=== PATIENT | female | born 1975 ===

== ENCOUNTER 2016-05-27 22:29 | Observation (INO) | payer OTHER ==
[2016-05-27] MEDS ORDERED: ASPIRIN 81 MG CHEW PO STA (23:01)
--- NOTE | 2016-05-27 23:42 | ED ---
General Adult HPI - General Chief complaint: Shortness of Breath Stated complaint: AXEL / HTN Time Seen by Provider: 05/27/16 22:43 Source: patient Mode of arrival: ambulatory Limitations: no limitations - History of Present Illness Initial comments: 41-year-old female with history diabetes and hypertension presenting for chest pain and abdominal pain and SOB. Patient states that her symptoms began earlier today after she was at the dentist for 2 fillings. She did have local anesthetic at that time. She states that she is also benign new medication for hypertension over the past month although her blood pressure readings have been labile. States that her sugars been running higher over the past week. In the 280s. States she is taking her insulin both Lantus and sliding scale. She states her sugars are better in the morning and worse at nighttime. She states that today she began having chest pain and and abdominal pain. She has mild nausea associated has not had any vomiting. She denies any fevers or chills. - Related Data Allergies Allergy/AdvReac Type Severity Reaction Status Date / Time No Known Allergies Allergy Verified 05/27/16 23:44 Review of Systems ROS Statement: Those systems with pertinent positive or pertinent negative responses have been documented in the HPI. Constitutional: No fevers. No chills. No change in appetite. No unexpected weight loss. Eyes: No visual changes. No eye pain. No sensitivity to light. HENT: No sinus pressure. No ear pain. No hearing changes. No epistaxis. No sore throat. Respiratory: No cough. Positive SOB. No wheezing. Cardiovascular: Positive chest pain. No palpitations. No lower extremity edema. Abdomen: Positive abdominal pain. Positive nausea. No vomiting. No diarrhea. Genitourinary: No dysuria. No hematuria. No difficulty urinating. No flank pain. Irregular and heavy periods. Musculoskeletal: No injury. No back pain. No myalgias. Skin: No rash. No lesions. No lacerations. Neuro: No gross strength deficits. No LOC. No seizures. No headache. Psych: No confusion. No memory changes. No anxiety/depression. ROS Other: All systems not noted in ROS Statement are negative. Past Medical History Past Medical History: Diabetes Mellitus History of Any Multi-Drug Resistant Organisms: None Reported Past Surgical History: No Surgical Hx Reported Past Psychological History: Anxiety Smoking Status: Never smoker Past Alcohol Use History: None Reported Past Drug Use History: None Reported General Exam - General Exam Comments Initial Comments: General: Awake and Alert. No acute distress. Does not appear acutely ill. Obese. Eyes: DENICE, EOM intact. No nystagmus. No scleral icterus. HENT: Atraumatic, normocephalic. Mucous membranes moist. Trachea midline. Neck: The neck is supple, there is no tenderness or JVD. Cardiovascular: Regular rate and rhythm. No murmur, rub, or gallop is appreciated. Distal pulses intact. Respiratory: Lungs are clear to auscultation bilaterally. No wheezes, rales, rhonchi. No respiratory distress. Gastrointestinal: Soft, Nontender. No rebound or guarding. Non-distended. No masses or organomegaly noted. No CVA tenderness. Musculoskeletal: No tenderness. Normal ROM. No gross deformity. No strength deficits. Neurological: A&Ox3. CN II-XII grossly intact, There are no obvious motor or sensory deficits. Coordination appears grossly intact. Speech is normal. Skin: Skin is warm and dry and no rashes or lesions are noted. Psychiatric: Cooperative, appropriate mood & affect, normal judgment. Limitations: no limitations Course Vital Signs 05/27/16 05/27/16 22:30 23:56 Temperature 98.2 F Pulse Rate 102 H 80 Respiratory 22 18 Rate Blood Pressure 248/109 235/68 O2 Sat by Pulse 99 96 Oximetry EKG Findings - EKG Comments: EKG Findings:: EKG 23:31. Normal sinus rhythm. Rate 81. PA 122. QRS 80. QT/ QTc 390/453. Normal axis. No STEMI. Normal EKG. Medical Decision Making - Medical Decision Making 41-year-old female presenting for chest pain and abdominal pain. Patient states history of diabetes. She is also noted to be significantly hypertensive on initial exam. IV labetalol ordered. Was given ASA. Cardiac workup ordered. Lab work showing anemia which patient states is a new issue. She does states she has had heavier and irregular periods recently. BMP with elevated renal function concerning for AKA, though no prior values to compare to. Glucose mildly elevated. Initial lipase with mild elevation. Otherwise LFTs are stable. Initial troponin Given significant hypertension ongoing chest pain and abdominal pain, plan for admission for further evaluation and treatment for cardiac evaluation and trending of lipase. Patient is agreeable with this plan. I spoke with Dr. Webb, agrees with plan for admission. - Lab Data Result diagrams: 05/27/16 23:40 05/27/16 23:40 Lab Results 05/27/16 05/27/16 05/27/16 Range/Units 23:40 23:40 23:40 WBC 8.6 (3.8-10.6) k/uL RBC 4.02 (3.80-5.40) m/uL Hgb 9.4 L (11.4-16.0) gm/dL Hct 30.5 L (34.0-46.0) % MCV 76.0 L (80.0-100.0) fL MCH 23.3 L (25.0-35.0) pg MCHC 30.7 L (31.0-37.0) g/dL RDW 13.6 (11.5-15.5) % Plt Count 513 H (150-450) k/uL Neutrophils % 62 % Lymphocytes % 29 % Monocytes % 4 % Eosinophils % 2 % Basophils % 1 % Neutrophils # 5.3 (1.3-7.7) k/uL Lymphocytes # 2.5 (1.0-4.8) k/uL Monocytes # 0.3 (0-1.0) k/uL Eosinophils # 0.2 (0-0.7) k/uL Basophils # 0.1 (0-0.2) k/uL Hypochromasia Marked Sodium 142 (137-145) mmol/L Potassium 4.4 (3.5-5.1) mmol/L Chloride 105 (98-107) mmol/L Carbon Dioxide 23 (22-30) mmol/L Anion Gap 14 mmol/L BUN 40 H (7-17) mg/dL Creatinine 1.60 H (0.52-1.04) mg/dL Est GFR (MDRD) Af Amer 43 (>60 ml/min/1.73 sqM) Est GFR (MDRD) Non-Af 35 (>60 ml/min/1.73 sqM) Glucose 202 H (74-99) mg/dL POC Glucose (mg/dL) (75-99) mg/dL POC Glu Sewing Line Baler ID Calcium 9.8 (8.4-10.2) mg/dL Total Bilirubin 0.5 (0.2-1.3) mg/dL AST 30 (14-36) U/L ALT 24 (9-52) U/L Alkaline Phosphatase 87 (38-126) U/L Troponin I (0.000-0.034) ng/mL NT-Pro-B Natriuret Pep 57 pg/mL Total Protein 8.1 (6.3-8.2) g/dL Albumin 4.2 (3.5-5.0) g/dL Lipase 369 H (23-300) U/L 05/27/16 05/27/16 Range/Units 23:40 23:55 WBC (3.8-10.6) k/uL RBC (3.80-5.40) m/uL Hgb (11.4-16.0) gm/dL Hct (34.0-46.0) % MCV (80.0-100.0) fL MCH (25.0-35.0) pg MCHC (31.0-37.0) g/dL RDW (11.5-15.5) % Plt Count (150-450) k/uL Neutrophils % % Lymphocytes % % Monocytes % % Eosinophils % % Basophils % % Neutrophils # (1.3-7.7) k/uL Lymphocytes # (1.0-4.8) k/uL Monocytes # (0-1.0) k/uL Eosinophils # (0-0.7) k/uL Basophils # (0-0.2) k/uL Hypochromasia Sodium (137-145) mmol/L Potassium (3.5-5.1) mmol/L Chloride (98-107) mmol/L Carbon Dioxide (22-30) mmol/L Anion Gap mmol/L BUN (7-17) mg/dL Creatinine (0.52-1.04) mg/dL Est GFR (MDRD) Af Amer (>60 ml/min/1.73 sqM) Est GFR (MDRD) Non-Af (>60 ml/min/1.73 sqM) Glucose (74-99) mg/dL POC Glucose (mg/dL) 212 H (75-99) mg/dL POC Glu Sewing Line Baler ID [place], [place]rence Calcium (8.4-10.2) mg/dL Total Bilirubin (0.2-1.3) mg/dL AST (14-36) U/L ALT (9-52) U/L Alkaline Phosphatase (38-126) U/L Troponin I <0.012 (0.000-0.034) ng/mL NT-Pro-B Natriuret Pep pg/mL Total Protein (6.3-8.2) g/dL Albumin (3.5-5.0) g/dL Lipase (23-300) U/L - EKG Data -: EKG Interpreted by Me EKG shows normal: sinus rhythm Rate: normal - Radiology Data Radiology results: report reviewed, image reviewed Disposition Clinical Impression: Chest pain, Abdominal pain, HTN (hypertension), Diabetes mellitus, Elevated lipase, STEPHEN (acute kidney injury), Anemia, Menorrhagia with irregular cycle Disposition: ADMITTED IP TO THIS HOSP Condition: Stable Referrals: Sarbjit Flores MD [Primary Care Provider] - 1-2 days Time of Disposition: 01:02 Decision to Admit Reason: Admit from EC
[2016-05-27] MEDS ORDERED: cloNIDine HCL 0.2 MG TAB PO STA (23:55)
[2016-05-27] MEDS ORDERED: LABETALOL SYRINGE 5 MG/ML IVP STA (23:55)
--- NOTE | 2016-05-27 23:58 | XR ---
EXAMINATION TYPE: XR chest 2V DATE OF EXAM: 05/27/2016 11:51 PM COMPARISON: NONE HISTORY: Chest pain TECHNIQUE: Frontal and lateral views of the chest are obtained. FINDINGS: There is no heart failure nor confluent pneumonic infiltrate. Heart and mediastinum are no rmal. There are no hilar masses. There are chest leads. Bony thorax is intact. IMPRESSION: Normal chest
[2016-05-28] LABS: Basophils # (A) 0.1 k/uL (0-0.2); Basophils % (A) 1 %; CH 23.1; CHCM 30.5; Eosinophils # (A) 0.2 k/uL (0-0.7); Eosinophils % (A) 2 %; HCT 30.5 % (34.0-46.0); HDW 3.13; HGB 9.4 gm/dL (11.4-16.0); Hypochromasia Marked; Luc # (Auto) 0.21; Luc % (Auto) 2; Lymphocytes # (A) 2.5 k/uL (1.0-4.8); Lymphocytes % (A) 29 %; MCH 23.3 pg (25.0-35.0); MCHC 30.7 g/dL (31.0-37.0); Mean Platelet Volume 6.3; Monocytes # (A) 0.3 k/uL (0-1.0); Monocytes % (A) 4 %; Neutrophils # (A) 5.3 k/uL (1.3-7.7); Neutrophils % (A) 62 %; RBC 4.02 m/uL (3.80-5.40); RDW 13.6 % (11.5-15.5); WBC 8.6 k/uL (3.8-10.6); WBC (Perox) 9.08
[2016-05-28] LABS: Glucose,Whole Blood 212 mg/dL (75-99)
[2016-05-28 00:17] LABS: Calcium 9.8 mg/dL (8.4-10.2); Potassium 4.4 mmol/L (3.5-5.1); Total Bilirubin 0.5 mg/dL (0.2-1.3); Total Protein 8.1 g/dL (6.3-8.2)
[2016-05-28] MEDS ORDERED: ACETAMINOPHEN TAB 325 MG TAB PO PRN (00:48)
[2016-05-28] MEDS ORDERED: NALOXONE 0.4 MG/ML 1 ML VIAL IV PRN (00:48)
[2016-05-28] MEDS ORDERED: ONDANSETRON 4 MG/2 ML VIAL IVP PRN (00:48)
[2016-05-28] MEDS ORDERED: NITROGLYCERIN SL TABS 0.4 MG TAB SUBLINGUAL PRN (00:48)
[2016-05-28] MEDS ORDERED: HYDROcodone/APAP 5-325MG 1 EACH TAB PO PRN (00:48)
[2016-05-28] MEDS ORDERED: MORPHINE SULFATE 4 MG/ML SYRINGE IVP PRN (00:59)
[2016-05-28] MEDS ORDERED: LABETALOL SYRINGE 5 MG/ML IVP PRN (01:00)
[2016-05-28 02:13] LABS: Glucose,Whole Blood 205 mg/dL (75-99)
[2016-05-28 02:30] VITALS: BMI 29.6
[2016-05-28 06:09] LABS: Glucose,Whole Blood 182 mg/dL (75-99)
[2016-05-28] MEDS: INSULIN LISPRO (humaLOG) 300 UNIT/3 ML VIAL SQ SCH ×4 (06:30→21:50)
[2016-05-28 06:35] LABS: Creatine Kinase 49 U/L (30-135)
[2016-05-28 06:46] LABS: Creatine Kinase MB <0.2 ng/mL (0.0-2.4); Troponin I <0.012 ng/mL (0.000-0.034)
[2016-05-28] MEDS: DOCUSATE 100 MG CAP PO SCH (07:48)
[2016-05-28] MEDS: TRIAMTERENE-HCTZ 37.5-25MG 1 EACH TAB PO SCH (07:48)
[2016-05-28] MEDS: FAMOTIDINE 20 MG TAB PO SCH ×2 (07:48→20:23)
[2016-05-28] MEDS: HEPARIN SODIUM,PORCINE 5,000 UNIT/ML 1 ML VIAL SQ SCH ×3 (07:49→23:15)
[2016-05-28 11:41] LABS: Glucose,Whole Blood 177 mg/dL (75-99)
[2016-05-28 12:40] LABS: Hemoglobin A1C 6.8 % (4.2-6.1)
[2016-05-28] MEDS: amLODIPine 5 MG TAB PO SCH (12:43)
[2016-05-28] MEDS: LISINOPRIL 10 MG TAB PO SCH (12:43)
[2016-05-28 13:02] LABS: Creatine Kinase 49 U/L (30-135)
[2016-05-28 13:15] LABS: Creatine Kinase MB 0.3 ng/mL (0.0-2.4); Troponin I <0.012 ng/mL (0.000-0.034)
--- NOTE | 2016-05-28 13:24 | CONS ---
Mrs. Merchant is a 41-year-old female who is seen for cardiac evaluation. The patient's electronic medical records and emergency room records reviewed. This patient has a history of hypertension and diabetes. She was at her dentist. She had 2 fillings done. After the local anesthetic was given, the patient did not feel good. She started having some chest discomfort. Her blood pressure was high. Subsequently, the procedure was completed and she continued to have some chest discomfort. The pain is across the chest, not associated with any nausea, vomiting or sweating. Patient had similar symptoms 2 or 3 weeks ago when she had first anesthetic done. Patient has a history of diabetes as well as a history of hypertension. Patient is physically active and she denies any history of exertional chest pain. There is no prior history of myocardial infarction. Past medical history includes history of anxiety. SMOKING STATUS: The patient was never a smoker. REVIEW OF SYSTEMS: Patient has a history of chronic constipation. Physical examination at present reveals a 41-year-old obesely-built female who does not appear to be in any acute distress. Patient's blood pressure is now 177/79 mmHg. Head/HEENT is negative. Neck is supple. There is no increase in jugular venous pressure. Both the carotid pulses are felt. There is no bruit. Chest is symmetrical. HEART: The PMI is not felt. First and second heart sounds are normal. Lungs are clinically clear to auscultation and percussion. Abdomen is soft. Liver and spleen are not enlarged. Bowel sounds are heard. EXTREMITIES: Peripheral pulsations are 2+. EKG shows normal sinus rhythm without any acute ischemic changes. Patient's troponins are normal. FINAL IMPRESSION: This patient is admitted with chest pain and high blood pressure. The patient has a history of diabetes. RECOMMENDATIONS: We will start the patient on amlodipine and lisinopril and if the patient's blood pressure remains controlled, we will evaluate the patient with a stress echocardiographic study on Monday. Echo and Doppler study would be done.
[2016-05-28 16:40] LABS: Glucose,Whole Blood 221 mg/dL (75-99)
[2016-05-28] MEDS ORDERED: ALPRAZolam 0.25 MG TAB PO PRN (17:29)
[2016-05-28] MEDS ORDERED: HYDROmorphone 1 MG/ML 1 ML SYRINGE IVP PRN (17:29)
[2016-05-28] MEDS ORDERED: ATROPINE SULFATE RIGHT EYE SCH (17:30)
[2016-05-28] MEDS ORDERED: NACL 0.9% RIGHT EYE SCH (17:30)
[2016-05-28] MEDS ORDERED: LACTULOSE 20 GM/30 ML CUP PO SCH (18:00)
[2016-05-28 18:56] LABS: Amorphous Sediment,Urine Rare /hpf; Appearance,Urine Cloudy (Clear); Bilirubin,Urine Negative (Negative); Glucose,Urine (UA) 4+ (Negative); Ketones,Urine Negative (Negative); Leukocyte Esterase,Urine Negative (Negative); Mucus,Urine Rare /hpf; Nitrite,Urine Negative (Negative); PH, Urine 6.5 (5.0-8.0); Particle Count 4015; Protein,Urine 1+ (Negative); RBC,Urine 1 /hpf (0-5); Specific Gravity,Urine 1.011 (1.001-1.035); Squamous Epithelial Cell,Urine 9 /hpf (0-4); UA Billing (MACRO vs. MICRO) MICRO; Urobilinogen,Urine <2.0 mg/dL (<2.0); WBC,Urine 5 /hpf (0-5)
--- NOTE | 2016-05-28 19:20 | HP ---
DATE OF ADMISSION: 05/28/2016 CHIEF COMPLAINT: Shortness of breath and chest pain. HISTORY OF PRESENT ILLNESS: This 41-year-old woman with a past history of multiple medical problems, including diabetes mellitus type 1, history of hypertension, hyperlipidemia, history of miscarriages, colonoscopy, history of difficulty in vision with diabetic retinopathy, history of anxiety, being followed by primary physician in, was visiting family. The patient had chest pains in the anterior part of chest and some abdominal pain, also. The patient had shortness of the patient. The patient also was at the dentist with 2 fillings. The patient also had local anesthesia at that time. Subsequently because of multiple complaints, patient came to [facility], admitted for further evaluation and treatment. Blood sugars were elevated up to 212, hemoglobin A1c 6.8. Lipase was 369 and 379. Otherwise, hemoglobin was 9.4, platelets are 515. The patient also had multiple other evaluations, including chest x-ray which was normal and EKG showed normal sinus rhythm. Patient came for further evaluation and treatment. There is no history of any fever, rigors or chills. No history of headache, loss of consciousness or seizures. PAST MEDICAL HISTORY: History of diabetes mellitus type 1, history of hypertension, hyperlipidemia, history of pneumonia, history of miscarriages, history of anxiety. Medications prior to admission include: 1. Maxzide 1 tablet p.o. daily. 2. Xalatan 0.05% 1 drop left eye q.h.s. 3. Lantus 65 subcu q.h.s. 4. Vitamin D2 50,000 subcu p.o. Monday. 5. Dorzolamide 1 drop both eyes b.i.d. 6. Colace 100 mg p.o. q.h.s. 7. Alphagan 0.2% 1 drop b.i.d. 8. Aspirin 81 mg p.o. daily. 9. Humalog a.c. t.i.d. 10. Xanax 1 mg p.o. daily. 11. Atropine 1 drop right eye q.48 hours. ALLERGIES: None. FAMILY HISTORY: History of diabetes, hypertension, hyperlipidemia as well as stent placement in the family. SOCIAL HISTORY: No history of smoking. No history of alcohol intake. REVIEW OF SYSTEMS: ENT: Diminished vision. No diminished hearing. Diabetic retinopathy. CARDIOVASCULAR: As mentioned earlier. RESPIRATORY: As mentioned earlier. GI: As mentioned earlier. : No dysuria. NERVOUS: No numbness or weakness. ALLERGY/IMMUNOLOGY: No asthma or hay fever. MUSCULOSKELETAL: As mentioned earlier. HEMATOLOGY/ONCOLOGY: No history of anemia. ENDOCRINE: As mentioned earlier. CONSTITUTIONAL: As mentioned earlier. DERMATOLOGY: Negative. RHEUMATOLOGY: Negative. PSYCHIATRY: As mentioned earlier. PHYSICAL EXAMINATION: Alert and oriented x3. Pulse 84, blood pressure 170/79, no orthostatic changes. Respirations 16, temperature is 97.8, pulse ox 100% on room air. HEENT: Conjunctivae normal. Oral mucosa moist. NECK: No jugular venous distention. No carotid bruits. No lymph node enlargement. CARDIOVASCULAR: S1 and S2, muffled. No S3. No S4. RESPIRATORY: Breath sounds diminished at the bases. No rhonchi, no crackles. ABDOMEN: Soft, nontender. No mass palpable. LEGS: No edema, no swelling. NERVOUS SYSTEM: Higher function as mentioned. Moves all 4 limbs. No motor or sensory deficits. LYMPHATIC: No lymph nodes in neck, axillae or groin. SKIN: No ulcers, rash or bleeding. LABS: WBC 8.3, hemoglobin is 10.4 and platelets are 513. Creatinine is 1.6 and glucose 212. Hemoglobin A1c of 6.8. Lipase of 369. ASSESSMENT: 1. Chest pain and abdominal pain for evaluation, rule out coronary artery disease. 2. Rule out acute pancreatitis. 3. Diabetes mellitus type 1. 4. Increased creatinine with mild acute renal failure. 5. Diabetic retinopathy. 6. Anemia, microcytic. 7. Increased platelets. 8. Hypertension. 9. Hyperlipidemia. 10. History of pneumonia. 11. History of miscarriages. 12. History of anxiety, not otherwise specified. 13. FULL CODE. RECOMMENDATIONS AND DISCUSSION: In this 41-year-old woman who presented with multiple complex medical issues, we will monitor the patient closely, continue with the current medications, continue with symptomatic treatment. Resume the home medications. Rule out myocardial infarction. Cardiology has been consulted. Otherwise, I will repeat amylase and lipase and if the amylase is also elevated, I would recommend a CT scan of the abdomen, also. Otherwise, continue to monitor. Prognosis guarded. Further recommendations to follow. See orders for further details. Monitor blood sugars closely and further workup Cardiology and control the blood pressure. MTDD
[2016-05-28] MEDS ORDERED: ATROPINE OPHTH SOLN 1% 5ML BTL RIGHT EYE SCH (20:00)
[2016-05-28] MEDS: LACTULOSE 20 GM/30 ML CUP PO SCH ×2 (20:14→20:21)
[2016-05-28] MEDS: BRIMONIDINE TARTRATE 0.2% DROPS 5 ML BTL BOTH EYES SCH (20:19)
[2016-05-28] MEDS: DORZOLAMIDE HCL 2% DROPS 10 ML BTL BOTH EYES SCH (20:20)
[2016-05-28] MEDS: LATANOPROST 0.005% OPHTH DROPS 2.5 ML BTL LEFT EYE SCH (20:20)
[2016-05-28 20:56] LABS: Glucose,Whole Blood 285 mg/dL (75-99)
[2016-05-28] MEDS ORDERED: TEMAZEPAM 15 MG CAP PO PRN (21:00)
[2016-05-28] MEDS: INSULIN GLARGINE 100 UNIT/ML 10 ML VIAL SQ SCH (21:50)
[2016-05-29 06:23] LABS: Glucose,Whole Blood 151 mg/dL (75-99)
[2016-05-29 06:28] LABS: Basophils # (A) 0.1 k/uL (0-0.2); Basophils % (A) 1 %; CH 23.4; CHCM 30.9; Eosinophils # (A) 0.1 k/uL (0-0.7); Eosinophils % (A) 2 %; HCT 30.2 % (34.0-46.0); HDW 3.07; HGB 9.3 gm/dL (11.4-16.0); Hypochromasia Moderate; Luc # (Auto) 0.24; Luc % (Auto) 4; Lymphocytes # (A) 2.4 k/uL (1.0-4.8); Lymphocytes % (A) 37 %; MCH 23.5 pg (25.0-35.0); MCHC 30.9 g/dL (31.0-37.0); Mean Platelet Volume 7.1; Monocytes # (A) 0.4 k/uL (0-1.0); Monocytes % (A) 6 %; Neutrophils # (A) 3.2 k/uL (1.3-7.7); Neutrophils % (A) 50 %; RBC 3.97 m/uL (3.80-5.40); WBC 6.4 k/uL (3.8-10.6); WBC (Perox) 7.28
[2016-05-29] MEDS: INSULIN LISPRO (humaLOG) 300 UNIT/3 ML VIAL SQ SCH ×4 (06:47→21:37)
[2016-05-29] MEDS: PANTOPRAZOLE 40 MG TABLET PO SCH (06:48)
[2016-05-29 06:52] LABS: Calcium 9.8 mg/dL (8.4-10.2); Potassium 4.4 mmol/L (3.5-5.1)
[2016-05-29] MEDS: HEPARIN SODIUM,PORCINE 5,000 UNIT/ML 1 ML VIAL SQ SCH ×3 (08:02→23:19)
[2016-05-29] MEDS: FAMOTIDINE 20 MG TAB PO SCH ×2 (08:03→21:36)
[2016-05-29] MEDS: amLODIPine 5 MG TAB PO SCH (08:03)
[2016-05-29] MEDS: TRIAMTERENE-HCTZ 37.5-25MG 1 EACH TAB PO SCH (08:03)
[2016-05-29] MEDS: ASPIRIN 325 MG TAB PO SCH (08:03)
[2016-05-29] MEDS: BRIMONIDINE TARTRATE 0.2% DROPS 5 ML BTL BOTH EYES SCH ×2 (08:04→21:37)
[2016-05-29] MEDS: DOCUSATE 100 MG CAP PO SCH (08:04)
[2016-05-29] MEDS: DORZOLAMIDE HCL 2% DROPS 10 ML BTL BOTH EYES SCH ×2 (08:04→21:36)
[2016-05-29] MEDS: LACTULOSE 20 GM/30 ML CUP PO SCH ×4 (08:04→21:36)
[2016-05-29] MEDS: LISINOPRIL 10 MG TAB PO SCH (08:04)
[2016-05-29 11:49] LABS: Glucose,Whole Blood 225 mg/dL (75-99)
--- NOTE | 2016-05-29 15:05 | PN ---
This patient was admitted with chest pain and uncontrolled blood pressure. Patient is feeling better. He is not having any more chest discomfort. Patient's blood pressure remains fairly well controlled. Last blood pressure is 115/60 mmHg. HEART: S1 and S2 normal. Lungs are clinically clear to auscultation and percussion. Patient will undergo a stress test tomorrow.
[2016-05-29 16:22] LABS: Glucose,Whole Blood 201 mg/dL (75-99)
[2016-05-29 16:48] VITALS: RESP 18
[2016-05-29 21:05] LABS: Glucose,Whole Blood 201 mg/dL (75-99)
[2016-05-29] MEDS: INSULIN GLARGINE 100 UNIT/ML 10 ML VIAL SQ SCH (21:37)
[2016-05-29] MEDS: LATANOPROST 0.005% OPHTH DROPS 2.5 ML BTL LEFT EYE SCH (21:38)
--- NOTE | 2016-05-29 23:02 | PN ---
DATE OF SERVICE: 05/29/2016 This 41-year-old woman who was admitted with shortness of breath, chest pain is being closely monitored. Myocardial infarction ruled out. Cardiology is recommending cardiac stress test tomorrow. No chest pain. No palpitations. No fever. On exam, alert and oriented x3. Pulse is 76, blood pressure 115/60, respiratory rate 16, temperature 97.2, pulse ox 100% on room air. HEENT: Conjunctivae normal . NECK: No jugular venous distention. CARDIOVASCULAR: S1, S2 muffled. RESPIRATORY: Breath sounds diminished at the bases. No rhonchi. No crackles. ABDOMEN: Soft, nontender. LEGS: No edema. No Swelling. Nervous system: No focal deficit. LABS: Hemoglobin 9.3. Otherwise, glucose is 130 and LDL is 107 and HDL is 35. ASSESSMENT: 1. Chest pain, abdominal pain for evaluation, rule out coronary artery disease. 2. Acute pancreatitis unlikely. 3. Diabetes mellitus type 1. 4. Increased creatinine with mild acute renal failure. 5. Diabetic retinopathy. 6. Anemia, microcytic. 7. Increased platelets. 8. Hypertension, essential. 9. History of hyperlipidemia. 10. History of pneumonia. 11. History of miscarriages. 12. Anxiety, not otherwise specified. 13. Increased triglycerides. 14. Hyperlipidemia. 15. Anemia, microcytic for evaluation. 16. Increased platelets. 17. FULL CODE. RECOMMENDATIONS AND DISCUSSION: Recommend to continue current medications, continue with monitoring, symptomatic treatment. Otherwise, resume the previous medications. Closely monitor. Closely follow with cardiology. Possible stress test. Monitor blood sugars closely. Guarded prognosis because of multiple complex medical issues. Further recommendations to follow.
[2016-05-30 06:28] LABS: Basophils % (A) 1 %; CHCM 30.3; Eosinophils # (A) 0.2 k/uL (0-0.7); Eosinophils % (A) 3 %; HCT 29.1 % (34.0-46.0); HDW 3.06; Hypochromasia Marked; Luc # (Auto) 0.18; Luc % (Auto) 2; Lymphocytes # (A) 2.4 k/uL (1.0-4.8); Lymphocytes % (A) 32 %; MCH 23.5 pg (25.0-35.0); MCHC 30.9 g/dL (31.0-37.0); MCV 76.3 fL (80.0-100.0); Mean Platelet Volume 6.3; Monocytes # (A) 0.5 k/uL (0-1.0); Monocytes % (A) 6 %; Neutrophils # (A) 4.2 k/uL (1.3-7.7); Neutrophils % (A) 56 %; RBC 3.82 m/uL (3.80-5.40); RDW 13.7 % (11.5-15.5); WBC 7.5 k/uL (3.8-10.6); WBC (Perox) 8.24
[2016-05-30 06:39] LABS: Calcium 9.8 mg/dL (8.4-10.2); Potassium 4.2 mmol/L (3.5-5.1)
[2016-05-30 06:53] LABS: Glucose,Whole Blood 109 mg/dL (75-99)
[2016-05-30] MEDS: INSULIN LISPRO (humaLOG) 300 UNIT/3 ML VIAL SQ SCH ×2 (06:57→12:50)
[2016-05-30] MEDS ORDERED: ERGOCALCIFEROL 50,000 UNIT CAP PO SCH (09:00)
[2016-05-30 11:15] LABS: Glucose,Whole Blood 78 mg/dL (75-99)
--- NOTE | 2016-05-30 11:33 | ECHOF ---
Referral Reason:chest pain MEASUREMENTS -------- HEIGHT: 165.1 cm WEIGHT: 80.3 kg BP: 191/86 RVIDd: 2.8 cm (< 3.3) IVSd: 1.3 cm (0.6 - 1.1) LVIDd: 4.3 cm (3.9 - 5.3) LVPWd: 1.3 cm (0.6 - 1.1) IVSs: 1.6 cm LVIDs: 3.0 cm LVPWs: 1.7 cm LA Diam: 3.7 cm (2.7 - 3.8) LAESV Index (A-L): 19.39 ml/m Ao Diam: 2.9 cm (2.0 - 3.7) AV Cusp: 2.2 cm (1.5 - 2.6) MV EXCURSION: 20.174 mm (> 18.000) MV EF SLOPE: 84 mm/s (70 - 150) EPSS: 0.8 cm MV E [place]: 0.73 m/s MV DecT: 252 ms MV A [place]: 0.71 m/s MV E/A Ratio: 1.04 FINDINGS -------- Sinus rhythm. This was a technically good study. The left ventricular size is normal. There is mild concentric left ventricular hypertrophy. Overall left ventricular systolic function is normal with, an EF between 55 - 60 %. The right ventricle is normal in size and function. Normal LA size by volume 22+/-6 ml/m2. The right atrium is normal in size. The aortic valve is trileaflet and appears structurally normal. The mitral valve is normal. There is trace mitral regurgitation. The tricuspid valve appears structurally normal. No regurgitation noted There is no pulmonic regurgitation present. The aortic root size is normal. There is no pericardial effusion. CONCLUSIONS -------- 1. Sinus rhythm. 2. This was a technically good study. 3. There is mild concentric left ventricular hypertrophy. 4. Normal LA size by volume 22+/-6 ml/m2. 5. The aortic valve is trileaflet and appears structurally normal. 6. The tricuspid valve appears structurally normal. 7. There is no pulmonic regurgitation present. 8. The aortic root size is normal. 9. There is no pericardial effusion. COLLECTOR OF INTERNAL REVENUE: Faina Yee RDCS
[2016-05-30] MEDS: BRIMONIDINE TARTRATE 0.2% DROPS 5 ML BTL BOTH EYES SCH (12:46)
[2016-05-30] MEDS: ASPIRIN 325 MG TAB PO SCH (12:46)
[2016-05-30] MEDS: PANTOPRAZOLE 40 MG TABLET PO SCH (12:47)
[2016-05-30] MEDS: HEPARIN SODIUM,PORCINE 5,000 UNIT/ML 1 ML VIAL SQ SCH (12:47)
[2016-05-30] MEDS: amLODIPine 5 MG TAB PO SCH (12:47)
[2016-05-30] MEDS: DOCUSATE 100 MG CAP PO SCH (12:47)
[2016-05-30] MEDS: FAMOTIDINE 20 MG TAB PO SCH (12:48)
[2016-05-30] MEDS: TRIAMTERENE-HCTZ 37.5-25MG 1 EACH TAB PO SCH (12:48)
[2016-05-30] MEDS: DORZOLAMIDE HCL 2% DROPS 10 ML BTL BOTH EYES SCH (12:48)
[2016-05-30] MEDS: LISINOPRIL 10 MG TAB PO SCH (12:49)
[2016-05-30] MEDS: LACTULOSE 20 GM/30 ML CUP PO SCH (13:04)
--- NOTE | 2016-05-30 13:22 | P.PN ---
Subjective Principal diagnosis: Chest pain This is a 41-year-old female who presented to the hospital with symptoms of chest pain. Patient's blood pressure was also significantly elevated on admission. She has a history of diabetes as well as hypertension. She was seen in consultation yesterday by Dr. VC Hall. Recommended to undergo echocardiogram with Doppler today as well as stress test. Echocardiogram with Doppler study revealed an ejection fraction of 55-60%. Patient was seen and examined today, denies any chest pain or difficulty in breathing. Blood pressure this morning 110/60 with a heart rate in the 70s. Objective - Vital Signs Vital signs: Vital Signs Temp 97.8 F 05/30/16 07:40 Pulse 95 05/30/16 07:40 Resp 18 05/30/16 07:40 BP 159/82 05/30/16 07:40 Pulse Ox 100 05/30/16 07:40 Intake & Output 05/29/16 05/30/16 05/30/16 18:59 06:59 18:59 Intake Total 822 10 10 Output Total 400 350 Balance 422 -340 10 Weight 79.2 kg Intake: IV 10 10 0.9 10 10 Oral 822 Output: Urine 400 350 Other: # Voids 2 1 1 - Exam PHYSICAL EXAMINATION: HEENT: Head is atraumatic, normocephalic. Pupils equal, round. Neck is supple. There is no elevated jugular venous pressure. HEART EXAMINATION: Heart S1, S2 normal. No murmur or gallop heard. CHEST EXAMINATION: Lungs are clear to auscultation and precussion. No chest wall tenderness is noted on palpation or with deep breathing. ABDOMEN: Soft, nontender. Bowel sounds are heard. No organomegaly noted. EXTREMITIES: 2+ peripheral pulses with no evidence of peripheral edema and no calf tenderness noted. NEUROLOGIC patient is awake, alert and oriented -3. . - Labs CBC & Chem 7: 05/30/16 05:59 05/30/16 05:59 Labs: Abnormal Lab Results - Last 24 Hours (Table) 05/29/16 05/29/16 05/30/16 Range/Units 16:20 20:56 05:59 Hgb 9.0 L (11.4-16.0) gm/dL Hct 29.1 L (34.0-46.0) % MCV 76.3 L (80.0-100.0) fL MCH 23.5 L (25.0-35.0) pg MCHC 30.9 L (31.0-37.0) g/dL Plt Count 494 H (150-450) k/uL BUN (7-17) mg/dL Creatinine (0.52-1.04) mg/dL Glucose (74-99) mg/dL POC Glucose (mg/dL) 201 H 201 H (75-99) mg/dL 05/30/16 05/30/16 Range/Units 05:59 06:43 Hgb (11.4-16.0) gm/dL Hct (34.0-46.0) % MCV (80.0-100.0) fL MCH (25.0-35.0) pg MCHC (31.0-37.0) g/dL Plt Count (150-450) k/uL BUN 36 H (7-17) mg/dL Creatinine 1.60 H (0.52-1.04) mg/dL Glucose 113 H (74-99) mg/dL POC Glucose (mg/dL) 109 H (75-99) mg/dL Assessment and Plan (1) Chest pain Status: Acute (2) Diabetes mellitus Status: Acute (3) HTN (hypertension) Status: Acute Plan: Patient scheduled today to undergo a stress echocardiographic study, if negative the patient should be able to be discharged home from cardiology's perspective, if the stress test is positive further recommendations then will be made. DNP note has been reviewed, I agree with a documented findings and plan of care. Patient was seen and examined.
[2016-05-30 13:40] VITALS: BP 146/75; PULSE 96; TEMP 97.1
--- NOTE | 2016-05-30 14:17 | ECHOS ---
DATE OF SERVICE: 05/30/2016 AGE: 41Y SEX: F HT: 65" WT: 175 lbs. Protocol Kiet: X Others: Stress Echo Stage: 3 Dur. of Exercise: 8:00 *Heart Rate Blood Pressure *Rest: 109 Rest: 143/75 * *Max. Achieved: 151 Maximum BP: 214/67 85% PMHR: 151 100% PMHR: 178 *METS: 8.1 INDICATIONS: Chest pain. MEDICATIONS: Lantus, Humalog, aspirin. Baseline rhythm is sinus mechanism, rate of 109, normal axis and intervals. Normal electrocardiogram. Baseline blood pressure 143/75 mmHg. Patient exercised on Kiet protocol for 8 minutes reaching peak rate 151 beats per minute, which is equal to 85% maximum predicted heart rate; peak blood pressure 214/67 mmHg. Test was terminated due to to fatigue. There was no chest pain. Electrocardiograph monitoring revealed no evidence of diagnostic ischemic ST-deviation. FINDINGS: Baseline echocardiogram revealed normal wall motion. At peak exercise there was normal wall motion augmentation with no hypokinesis or dyskinesis. CONCLUSION: 1. Average exercise tolerance with normal electrocardiograph response to exercise. 2. Normal stress echocardiogram with no evidence of stress-induced ischemia.
--- NOTE | 2016-05-31 11:37 | DS ---
DATE OF ADMISSION: 05/28/2016 DATE OF DISCHARGE: 05/30/2016 FINAL DIAGNOSES: 1. Chest pain, abdominal pain myocardial infarction ruled out, coronary artery disease ruled out, negative stress test. 2. Diabetes mellitus type 1. 3. Increased creatinine with mild acute renal failure present on admission, possibly secondary to dehydration. 4. Diabetic retinopathy. 5. Anemia, microcytic. 6. Increased platelets. 7. Hypertension, essential. 8. History of hyperlipidemia. 9. History of pneumonia. 10. History of miscarriages. 11. History of anxiety not otherwise specified. 12. Increased triglycerides. 13. Hyperlipidemia. 14. Anemia, microcytic for evaluation, possibly anemia of chronic disease or nutritional. 15. Increased platelets. 16. FULL CODE. DISCHARGE DISPOSITION: The patient will be discharged in stable condition with guarded prognosis. HISTORY OF PRESENT ILLNESS: This 41 -year-old woman with a past medical history of multiple medical problems admitted with chest pain and abdominal pain. The patient had multiple evaluations including stress echo, which was negative and cardiology saw the patient and recommended outpatient follow-up. Recommend the patient to follow up closely with primary physician in the outpatient setting. Currently on exam, vital signs are stable. CARDIOVASCULAR SYSTEM: S1, S2 muffled. Abdomen soft. Central nervous system: No focal deficits. Hemoglobin 9, creatinine 1.60. DISCHARGE ADVICE AND MEDICATIONS: 1. Diet is cardiac. 2. Activity limited until follow-up. 3. Follow-up with Dr. Flores in 2 to 3 days with CBC, BMP. 4. Medications to be addressed in the outpatient setting. But Currently: 5. Aspirin 81 mg daily. 6. Ectropion eye drops one drop right eye. 7. Alphagan 0.1 drop both eyes b.i.d. 8. Colace 100 mg q.h.s. 9. Dorzolamide one drop both eyes. 10. Vitamin D2 50,000 daily. 11. Humalog scale as before. 12. Lantus 65 units subcutaneously at bedtime. 13. Xalatan eye drops 0.05% 1 drop left eye. 14. Zestril 10 mg p.o. daily. 15. Zantac 150 mg daily. 16. Triamterene hydrochlorothiazide 37.5/25 mg p.o. daily. 17. Norvasc 5 mg p.o. daily. 18. Follow up with cardiology as recommended. Once again, the patient will be discharged in a stable condition with guarded prognosis.
== END 2016-05-30 14:56 | disposition home or self-care (01) ==
LOC: EC 22:29 → 3OBS 05-28 00:48 → 6SEL 05-28 01:34
PROVIDERS: ADMIT Internal Medicine; ATTEND Internal Medicine
DX: R07.89 Other chest pain (principal); E10.319 Type 1 diabetes mellitus with unspecified diabetic retinopathy without macular edema; D50.9 Iron deficiency anemia, unspecified; E78.2 Mixed hyperlipidemia; F41.9 Anxiety disorder, unspecified; I10 Essential (primary) hypertension; N17.9 Acute kidney failure, unspecified; Z79.4 Long term (current) use of insulin; Z79.82 Long term (current) use of aspirin; Z82.49 Family history of ischemic heart disease and other diseases of the circulatory system; R10.9 Unspecified abdominal pain; R06.02 Shortness of breath; Z79.899 Other long term (current) drug therapy; N92.6 Irregular menstruation, unspecified; K59.09 Other constipation
CPT/HCPCS: 96374 ×2; 99285 ×2; 36415; 93005; 93017; 93306; 93350; 83880; 80061; 80053; 80048 ×2; 82150 ×3; 83036; 82550; 82553; 83690 ×4; 84484 ×2; 85025 ×3; 81001; 80306; 71020; G0378 ×4; J1644 ×3; 96372

== ENCOUNTER → 2018-09-10 | Outpatient (CLI) | payer OTHER ==
--- NOTE | 2018-09-10 16:09 | US ---
EXAMINATION TYPE: US abdomen complete DATE OF EXAM: 09/10/2018 COMPARISON: NONE CLINICAL HISTORY: 43-year-old female I10 Hypertension, K59.09 Constipation, R94.4. TECHNIQUE: Multiple sonographic images of the abdomen are obtained. FINDINGS: EXAM MEASUREMENTS: Liver Length: 15.1 cm Gallbladder Wall: 0.4 cm CBD: 0.3 cm Spleen: 10.8 cm Right Kidney: 10.6 x 4.9 x 4.4 cm Left Kidney: 9.9 x 5.1 x 4.4 cm Car Head Liner Installer notes: Severe overlying midline bowel gas, large body habitus technically difficult and l imited. Pancreas: Obscured by bowel gas Liver: Increased attenuation Gallbladder: slightly thickened wall, posterior wall appears thicker Evidence for sonographic Alvarado's sign: CBD: wnl Spleen: wnl Right Kidney: wnl Left Kidney: Tiny 1 cm parapelvic cyst. No hydronephrosis. Upper IVC: wnl Abd Aorta: proximal and bifurcation obscured by bowel gas IMPRESSION: Nonspecific mild gallbladder wall thickening. This can be seen in the setting of partial gallbladder collapse, fluid overload states, or adjacent inflammation (such as hepatitis or pancreatitis). No abn ormal distention, surrounding fluid, or shadowing calculus seen to suggest acute cholecystitis. 3 mon th follow-up gallbladder ultrasound recommended to reassess. If concern for chronic cholecystitis, HI DA scan can be considered.
--- NOTE | 2018-09-10 16:30 | US ---
EXAMINATION TYPE: US pelvic complete DATE OF EXAM: 09/10/2018 COMPARISON: NONE CLINICAL HISTORY: 43-year-old female I10 Hypertension, K59.09 Constipation, Bloating TECHNIQUE: Transabdominal sonographic images of the pelvis were acquired. Date of LMP: 08/12/18 FINDINGS: EXAM MEASUREMENTS: Uterus: 7.9 x 3.0 x 5.2 cm Endometrial Stripe: 0.8 cm Right Ovary: 2.9 x 1.9 x 2.1 cm Left Ovary: 3.1 x 2.7 x 2.4 cm 1. Uterus: Anteverted, wnl 2. Endometrium: wnl 3. Right Ovary: wnl 4. Left Ovary: wnl 5. Bilateral Adnexa: wnl 6. Posterior cul-de-sac: wnl IMPRESSION: Unremarkable transabdominal sonographic examination of the pelvis.
== END | disposition home or self-care (01) ==
LOC: RADUSWWP 12:14
PROVIDERS: ATTEND Family Medicine
DX: K82.8 Other specified diseases of gallbladder (principal); I10 Essential (primary) hypertension; D50.9 Iron deficiency anemia, unspecified; R94.4 Abnormal results of kidney function studies; K59.09 Other constipation
CPT/HCPCS: 76700; 76856

== ENCOUNTER 2019-10-12 07:33 | Emergency (ER) | payer OTHER ==
[2019-10-12 07:40] VITALS: RESP 16; TEMP 98.2
[2019-10-12 07:52] LABS: Glucose,Whole Blood 342 mg/dL (75-99)
[2019-10-12] MEDS ORDERED: SODIUM CHLORIDE 0.9% 2,000 ML IV STA (07:53)
--- NOTE | 2019-10-12 08:07 | ED ---
General Adult HPI - General Chief complaint: Recheck/Abnormal Lab/Rx Stated complaint: diabetic issue Time Seen by Provider: 10/12/19 07:46 Source: patient, family, RN notes reviewed Mode of arrival: ambulatory Limitations: no limitations - History of Present Illness Initial comments: This a 44-year-old female presents emergency Department with chief complaint of hyperglycemia. Patient states that she's been having difficulty controlling her blood sugar last several weeks. She states that she's been there 3 to 400s. She is concerned possible infection. She denies any significant cough, fever, chills, chest pain, shortness breath, headache or dizziness, dysuria no hematuria denies any diarrhea she does complain of constipation which is been ongoing seen GI. Patient states that she does see an prestidigitator she had her Humalog switched to Novolin 70/30 2 months ago. She states she was doing fine after this which and feels this is not related to her medications. - Related Data Home Medications Medication Instructions Recorded Confirmed Aspirin 81 mg PO DAILY 05/28/16 09/24/19 Brimonidine Tartrate [Alphagan P 1 drop BOTH EYES BID 05/28/16 09/24/19 0.2% Ophth Soln] Dorzolamide HCl 1 drop BOTH EYES BID 05/28/16 09/24/19 Ergocalciferol [Vitamin D2 50,000 unit PO MOWEFR 05/28/16 09/24/19 (DRISDOL)] Latanoprost Ophth [Xalatan 0.005%] 1 drop BOTH EYES HS 05/28/16 09/24/19 Triamterene-Hctz 37.5-25Mg 1 tab PO DAILY 05/28/16 09/24/19 [Maxzide 37.5-25] Atorvastatin [Lipitor] 80 mg PO DAILY 09/24/19 09/24/19 Ferrous Sulfate [Feosol] 325 mg PO BID 09/24/19 09/24/19 Fish Oil Tab 2,000 mg PO DAILY 09/24/19 09/24/19 Insulin NPH Hum/Reg Insulin Hm 20 unit SQ AC-SUPPER 09/24/19 09/24/19 [NovoLIN 70-30 100 UNIT/ML VIAL] Insulin NPH Hum/Reg Insulin Hm 40 unit SQ AC-BRKFST 09/24/19 09/24/19 [NovoLIN 70-30 100 UNIT/ML VIAL] Losartan Potassium [Cozaar] 25 mg PO DAILY 09/24/19 09/24/19 Psyllium Husk/Aspartame [Metamucil 283 gm PO BID 09/24/19 09/24/19 Sugar-Free Powder] Rap-Col 1 tab PO HS 09/24/19 09/24/19 metFORMIN HCL [Glucophage] 500 mg PO BID 09/24/19 09/24/19 polyethylene glycoL 3350 [Miralax] 17 gm PO Q48H 09/24/19 09/24/19 Previous Rx's Medication Instructions Recorded amLODIPine [Norvasc] 5 mg PO DAILY #30 tab 05/30/16 Cephalexin [Keflex] 500 mg PO Q8HR #21 cap 10/12/19 Allergies Allergy/AdvReac Type Severity Reaction Status Date / Time epinephrine Allergy Severe elevated BP Verified 09/24/19 08:08 Review of Systems ROS Statement: Those systems with pertinent positive or pertinent negative responses have been documented in the HPI. ROS Other: All systems not noted in ROS Statement are negative. Past Medical History Past Medical History: Chest Pain / Angina, Diabetes Mellitus, GERD/Reflux, Hyperlipidemia, Pneumonia Additional Past Medical History / Comment(s): migraines, irregular bowel movements, constipation, History of Any Multi-Drug Resistant Organisms: None Reported Past Surgical History: Tonsillectomy Additional Past Surgical History / Comment(s): tube in wil eyes for "pressure" , colonoscopy Past Anesthesia/Blood Transfusion Reactions: No Reported Reaction Past Psychological History: Anxiety Smoking Status: Never smoker Past Alcohol Use History: None Reported Past Drug Use History: Marijuana - Past Family History Mother Additional Family Medical History / Comment(s): Stent placed. Brother(s) Family Medical History: Deep Vein Thrombosis (DVT) General Exam Limitations: no limitations General appearance: alert, in no apparent distress Head exam: Present: atraumatic, normocephalic, normal inspection Eye exam: Present: normal appearance, PERRL, EOMI. Absent: scleral icterus, conjunctival injection, periorbital swelling ENT exam: Present: normal exam, normal oropharynx, mucous membranes moist, TM's normal bilaterally Neck exam: Present: normal inspection, full ROM. Absent: tenderness, meningismus, lymphadenopathy Respiratory exam: Present: normal lung sounds bilaterally. Absent: respiratory distress, wheezes, rales, rhonchi, stridor Cardiovascular Exam: Present: regular rate, normal rhythm, normal heart sounds. Absent: systolic murmur, diastolic murmur, rubs, gallop, clicks GI/Abdominal exam: Present: soft, normal bowel sounds. Absent: distended, tenderness, guarding, rebound, rigid Back exam: Absent: CVA tenderness (R), CVA tenderness (L) Neurological exam: Present: alert, oriented X3 Skin exam: Present: warm, dry, intact, normal color. Absent: rash Course Vital Signs 10/12/19 07:37 Temperature 98.2 F Pulse Rate 92 Respiratory 16 Rate Blood Pressure 181/76 O2 Sat by Pulse 100 Oximetry Medical Decision Making - Medical Decision Making 44-year-old female presents emergency Department chief complaint hyperglycemia patient's son have urinary tract infection just to have some evidence of dysuria. Patient will be treated with Keflex she was given Rocephin emergency from urine was cultured blood sugars improved. She is advised to follow-up with PCP on Monday and return for any worsening symptoms. - Lab Data Result diagrams: 10/12/19 08:04 10/12/19 08:04 Lab Results 10/12/19 10/12/19 10/12/19 Range/Units 07:41 08:04 08:04 WBC 8.4 (3.8-10.6) k/uL RBC 4.06 (3.80-5.40) m/uL Hgb 9.7 L (11.4-16.0) gm/dL Hct 31.5 L (34.0-46.0) % MCV 77.5 L (80.0-100.0) fL MCH 24.0 L (25.0-35.0) pg MCHC 31.0 (31.0-37.0) g/dL RDW 15.1 (11.5-15.5) % Plt Count 390 (150-450) k/uL Neutrophils % 77 % Lymphocytes % 14 % Monocytes % 4 % Eosinophils % 3 % Basophils % 0 % Neutrophils # 6.5 (1.3-7.7) k/uL Lymphocytes # 1.2 (1.0-4.8) k/uL Monocytes # 0.4 (0-1.0) k/uL Eosinophils # 0.2 (0-0.7) k/uL Basophils # 0.0 (0-0.2) k/uL Hypochromasia Slight Microcytosis Slight Sodium 138 (137-145) mmol/L Potassium 3.8 (3.5-5.1) mmol/L Chloride 102 (98-107) mmol/L Carbon Dioxide 24 (22-30) mmol/L Anion Gap 12 mmol/L BUN 33 H (7-17) mg/dL Creatinine 1.36 H (0.52-1.04) mg/dL Est GFR (CKD-EPI)AfAm 54 (>60 ml/min/1.73 sqM) Est GFR (CKD-EPI)NonAf 47 (>60 ml/min/1.73 sqM) Glucose 327 H (74-99) mg/dL POC Glucose (mg/dL) 342 H (75-99) mg/dL POC Glu Video Game Script Writer ID Mali Mejias Plasma Lactic Acid Benjy (0.7-2.0) mmol/L Calcium 9.8 (8.4-10.2) mg/dL Total Bilirubin 0.6 (0.2-1.3) mg/dL AST 29 (14-36) U/L ALT 38 H (4-34) U/L Alkaline Phosphatase 118 (38-126) U/L Total Protein 7.7 (6.3-8.2) g/dL Albumin 4.2 (3.5-5.0) g/dL Lipase 146 (23-300) U/L Urine Color Urine Appearance (Clear) Urine pH (5.0-8.0) Ur Specific [place] (1.001-1.035) Urine Protein (Negative) Urine Glucose (UA) (Negative) Urine Ketones (Negative) Urine Blood (Negative) Urine Nitrite (Negative) Urine Bilirubin (Negative) Urine Urobilinogen (<2.0) mg/dL Ur Leukocyte Esterase (Negative) Urine RBC (0-5) /hpf Urine WBC (0-5) /hpf Ur Squamous Epith Cells (0-4) /hpf Urine Bacteria (None) /hpf Hyaline Casts (0-2) /lpf Urine Mucus (None) /hpf Urine HCG, Qual (Not Detectd) Acetone, Qual Negative (Negative) 10/12/19 10/12/19 10/12/19 Range/Units 08:04 08:05 08:05 WBC (3.8-10.6) k/uL RBC (3.80-5.40) m/uL Hgb (11.4-16.0) gm/dL Hct (34.0-46.0) % MCV (80.0-100.0) fL MCH (25.0-35.0) pg MCHC (31.0-37.0) g/dL RDW (11.5-15.5) % Plt Count (150-450) k/uL Neutrophils % % Lymphocytes % % Monocytes % % Eosinophils % % Basophils % % Neutrophils # (1.3-7.7) k/uL Lymphocytes # (1.0-4.8) k/uL Monocytes # (0-1.0) k/uL Eosinophils # (0-0.7) k/uL Basophils # (0-0.2) k/uL Hypochromasia Microcytosis Sodium (137-145) mmol/L Potassium (3.5-5.1) mmol/L Chloride (98-107) mmol/L Carbon Dioxide (22-30) mmol/L Anion Gap mmol/L BUN (7-17) mg/dL Creatinine (0.52-1.04) mg/dL Est GFR (CKD-EPI)AfAm (>60 ml/min/1.73 sqM) Est GFR (CKD-EPI)NonAf (>60 ml/min/1.73 sqM) Glucose (74-99) mg/dL POC Glucose (mg/dL) (75-99) mg/dL POC Glu Video Game Script Writer ID Plasma Lactic Acid Benjy 1.3 (0.7-2.0) mmol/L Calcium (8.4-10.2) mg/dL Total Bilirubin (0.2-1.3) mg/dL AST (14-36) U/L ALT (4-34) U/L Alkaline Phosphatase (38-126) U/L Total Protein (6.3-8.2) g/dL Albumin (3.5-5.0) g/dL Lipase (23-300) U/L Urine Color Light Yellow Urine Appearance Cloudy H (Clear) Urine pH 5.0 (5.0-8.0) Ur Specific [place] 1.013 (1.001-1.035) Urine Protein 1+ H (Negative) Urine Glucose (UA) 4+ H (Negative) Urine Ketones Negative (Negative) Urine Blood Trace H (Negative) Urine Nitrite Negative (Negative) Urine Bilirubin Negative (Negative) Urine Urobilinogen <2.0 (<2.0) mg/dL Ur Leukocyte Esterase Small H (Negative) Urine RBC 1 (0-5) /hpf Urine WBC 20 H (0-5) /hpf Ur Squamous Epith Cells <1 (0-4) /hpf Urine Bacteria Occasional H (None) /hpf Hyaline Casts 4 H (0-2) /lpf Urine Mucus Rare H (None) /hpf Urine HCG, Qual Not Detected (Not Detectd) Acetone, Qual (Negative) 10/12/19 Range/Units 10:01 WBC (3.8-10.6) k/uL RBC (3.80-5.40) m/uL Hgb (11.4-16.0) gm/dL Hct (34.0-46.0) % MCV (80.0-100.0) fL MCH (25.0-35.0) pg MCHC (31.0-37.0) g/dL RDW (11.5-15.5) % Plt Count (150-450) k/uL Neutrophils % % Lymphocytes % % Monocytes % % Eosinophils % % Basophils % % Neutrophils # (1.3-7.7) k/uL Lymphocytes # (1.0-4.8) k/uL Monocytes # (0-1.0) k/uL Eosinophils # (0-0.7) k/uL Basophils # (0-0.2) k/uL Hypochromasia Microcytosis Sodium (137-145) mmol/L Potassium (3.5-5.1) mmol/L Chloride (98-107) mmol/L Carbon Dioxide (22-30) mmol/L Anion Gap mmol/L BUN (7-17) mg/dL Creatinine (0.52-1.04) mg/dL Est GFR (CKD-EPI)AfAm (>60 ml/min/1.73 sqM) Est GFR (CKD-EPI)NonAf (>60 ml/min/1.73 sqM) Glucose (74-99) mg/dL POC Glucose (mg/dL) 213 H (75-99) mg/dL POC Glu Video Game Script Writer ID Sha Bobo Plasma Lactic Acid Benjy (0.7-2.0) mmol/L Calcium (8.4-10.2) mg/dL Total Bilirubin (0.2-1.3) mg/dL AST (14-36) U/L ALT (4-34) U/L Alkaline Phosphatase (38-126) U/L Total Protein (6.3-8.2) g/dL Albumin (3.5-5.0) g/dL Lipase (23-300) U/L Urine Color Urine Appearance (Clear) Urine pH (5.0-8.0) Ur Specific [place] (1.001-1.035) Urine Protein (Negative) Urine Glucose (UA) (Negative) Urine Ketones (Negative) Urine Blood (Negative) Urine Nitrite (Negative) Urine Bilirubin (Negative) Urine Urobilinogen (<2.0) mg/dL Ur Leukocyte Esterase (Negative) Urine RBC (0-5) /hpf Urine WBC (0-5) /hpf Ur Squamous Epith Cells (0-4) /hpf Urine Bacteria (None) /hpf Hyaline Casts (0-2) /lpf Urine Mucus (None) /hpf Urine HCG, Qual (Not Detectd) Acetone, Qual (Negative) Disposition Clinical Impression: Hyperglycemia, UTI (urinary tract infection) Disposition: HOME SELF-CARE Condition: Stable Instructions (If sedation given, give patient instructions): Urinary Tract Infection in Women (ED) Additional Instructions: Please return to the Emergency Department if symptoms worsen or any other concerns. Prescriptions: Cephalexin [Keflex] 500 mg PO Q8HR #21 cap Is patient prescribed a controlled substance at d/c from ED?: No Referrals: Cate Kerr MD [Primary Care Provider] - 1-2 days Time of Disposition: 10:07
--- NOTE | 2019-10-12 08:26 | XR ---
EXAMINATION TYPE: XR chest 2V DATE OF EXAM: 10/12/2019 COMPARISON: 05/27/2016 TECHNIQUE: PA and lateral views submitted. HISTORY: Cough FINDINGS: The lungs are clear and there is no pneumothorax, pleural effusion, or focal pneumonia. Heart size normal and no overt failure. IMPRESSION: 1. No acute process.
[2019-10-12 08:37] LABS: Basophils % (A) 0 %; Eosinophils # (A) 0.2 k/uL (0-0.7); Eosinophils % (A) 3 %; HCT 31.5 % (34.0-46.0); HGB 9.7 gm/dL (11.4-16.0); Hypochromasia Slight; Lymphocytes # (A) 1.2 k/uL (1.0-4.8); Lymphocytes % (A) 14 %; MCV 77.5 fL (80.0-100.0); Mean Platelet Volume 7.2; Microcytosis Slight; Monocytes # (A) 0.4 k/uL (0-1.0); Monocytes % (A) 4 %; Neutrophils # (A) 6.5 k/uL (1.3-7.7); Neutrophils % (A) 77 %; Platelet Count 390 k/uL (150-450); RBC 4.06 m/uL (3.80-5.40); RDW 15.1 % (11.5-15.5); WBC 8.4 k/uL (3.8-10.6)
[2019-10-12 08:49] LABS: ALT 38 U/L (4-34); AST 29 U/L (14-36); African American GFR (CKD) 54 (>60 ml/min/1.73 sqM); Albumin 4.2 g/dL (3.5-5.0); Alkaline Phosphatase 118 U/L (38-126); Anion Gap 12 mmol/L; Blood Urea Nitrogen 33 mg/dL (7-17); Calcium 9.8 mg/dL (8.4-10.2); Carbon Dioxide 24 mmol/L (22-30); Chloride 102 mmol/L (98-107); Glucose 327 mg/dL (74-99); Non-African American GFR(CKD) 47 (>60 ml/min/1.73 sqM); Potassium 3.8 mmol/L (3.5-5.1); Sodium 138 mmol/L (137-145); Total Bilirubin 0.6 mg/dL (0.2-1.3); Total Protein 7.7 g/dL (6.3-8.2)
[2019-10-12 09:46] LABS: Appearance,Urine Cloudy (Clear); Bacteria,Urine Occasional /hpf; Bilirubin,Urine Negative (Negative); Blood,Urine Trace (Negative); Color,Urine Light Yellow; Glucose,Urine (UA) 4+ (Negative); Hyaline Casts,Urine 4 /lpf (0-2); Ketones,Urine Negative (Negative); Leukocyte Esterase,Urine Small (Negative); Mucus,Urine Rare /hpf; Nitrite,Urine Negative (Negative); Protein,Urine 1+ (Negative); RBC,Urine 1 /hpf (0-5); Specific Gravity,Urine 1.013 (1.001-1.035); Squamous Epithelial Cell,Urine <1 /hpf (0-4); Urobilinogen,Urine <2.0 mg/dL (<2.0); WBC,Urine 20 /hpf (0-5)
[2019-10-12] MEDS ORDERED: cefTRIAXone IN SWFI 1,000 MG/10 ML SYRINGE IVP STA (09:58)
[2019-10-12 10:02] LABS: Glucose,Whole Blood 213 mg/dL (75-99)
[2019-10-12 10:53] VITALS: BP 154/85; PULSE 75
== END 2019-10-12 10:51 | disposition home or self-care (01) ==
LOC: EC 07:33
DX: E11.65 Type 2 diabetes mellitus with hyperglycemia (principal); N39.0 Urinary tract infection, site not specified; E78.5 Hyperlipidemia, unspecified; G43.909 Migraine, unspecified, not intractable, without status migrainosus; K59.00 Constipation, unspecified; I20.9 Angina pectoris, unspecified; Z79.4 Long term (current) use of insulin; Z79.82 Long term (current) use of aspirin; Z79.899 Other long term (current) drug therapy; Z88.8 Allergy status to other drugs, medicaments and biological substances
CPT/HCPCS: 36415; 80053; 82009; 83605; 83690; 85025; 81001; 81025; 87086; 87077; 87186; 71046; 99283; 96374; 96361 ×2; J0696

== ENCOUNTER → 2020-06-08 | Outpatient (CLI) | payer OTHER ==
--- NOTE | 2020-06-09 09:49 | US ---
EXAMINATION TYPE: US kidneys/renal and bladder DATE OF EXAM: 06/08/2020 COMPARISON: NONE CLINICAL HISTORY: N18.3 CKD Stage 3. known CKD stage 3, diabetic, no symptoms EXAM MEASUREMENTS: Right Kidney: 10.4 x 3.8 x 4.9 cm Left Kidney: 10.4 x 4.5 x 5.8 cm Right Kidney: No hydronephrosis or masses seen Left Kidney: No hydronephrosis or masses seen, previous pelvic cyst appears to be prominent pyramids Bladder: wnl Bilateral Jets seen: Yes There is no evidence for hydronephrosis at this point in time. No nephrolithiasis is seen. No ya s are identified. The urinary bladder is anechoic. Bilateral ureteral jets are seen. IMPRESSION: 1. Normal renal ultrasound
== END | disposition home or self-care (01) ==
LOC: RADUSWWP 15:36
PROVIDERS: ATTEND Internal Medicine
DX: E11.9 Type 2 diabetes mellitus without complications (principal); N18.30 Chronic kidney disease, stage 3 unspecified
CPT/HCPCS: 76770

== ENCOUNTER → 2020-06-18 | Outpatient (CLI) | payer OTHER ==
--- NOTE | 2020-06-18 13:35 | XR ---
EXAMINATION TYPE: XR soft tissue neck DATE OF EXAM: 06/18/2020 COMPARISON: NONE HISTORY: Right-sided neck swelling. TECHNIQUE: Two-view soft tissue neck. FINDINGS: No suspicious prevertebral soft tissue swelling. The epiglottis and vallecula appears withi n normal limits on lateral view. No suspicious narrowing of the subglottic airway on frontal view. Ov erlying soft tissue is unremarkable. Visualized upper lungs are clear. IMPRESSION: As above.
== END | disposition home or self-care (01) ==
LOC: RADXRMAIN 12:43
PROVIDERS: ATTEND Family Medicine
DX: R22.1 Localized swelling, mass and lump, neck (principal)
CPT/HCPCS: 70360

== ENCOUNTER → 2021-10-07 | Outpatient (CLI) | payer OTHER ==
--- NOTE | 2021-10-07 13:06 | NM ---
EXAMINATION TYPE: NM stress lexiscan cardiolite DATE OF EXAM: 10/07/2021 COMPARISON: NONE HISTORY: Chest pain TECHNIQUE: After the intravenous administration of 9.5 mCi Tc 99m Sestamibi - Cardiolite resting SPE CT images acquired 45 minutes post injection. The patient received 0.4mg Lexiscan, 24.9 mCi Tc 99m Sestamibi - Stress images obtained [address] injection FINDINGS: Review of stress and rest SPECT images demonstrates no distinct perfusion abnormality. Gated analysi s shows normal wall motion with an estimated left ventricular ejection fraction of 65 %. IMPRESSION: No scintigraphic evidence for reversible ischemia. Slight elevation in the ejection fraction could be technical, consider echocardiographic correlation
--- NOTE | 2021-10-07 14:52 | CA ---
Lexiscan Nuclear Stress Test Report Name: Adelina Merchant Exam Date: 10/07/2021 09:50 Exam Location: [place] Stress Ht (in): 65 Wt (lb): 177 BSA: 1.88 Ordering Phys: Florencio Dye MD Referring Phys: Hardik,, Technologist: Wes Finn Age: 46 Gender: F : 1975 Procedure CPT: Indications: R07.9 CHEST PAIN ICD-10 Codes: Patient History: Chest Iliana and shortness of breath Medications: Meds past 24 hrs: Pretest Chest Pain: STRESS TEST Lexiscan Protocol Exercise Duration (min:sec): 02:[address] Depressions (mm): Angina Score: Granger Score: Resting HR (bpm): 75 Peak HR (bpm): 99 Resting BP (mmHg): 136 / 83 Peak BP (mmHg): 155 / 87 MPHR: 173 Target HR: 147 % MPHR: 57 METS: 1.0 Total Dose: Peak Dose: Atropine: Double Product: 77222 BP Response: Stress Termination: Infusion complete Stress Symptoms: No chest pain or symptoms Stress Summary: ECG ANALYSIS Resting ECG: Stress ECG: CONCLUSIONS No ECG evidence for ischemia during Lexiscan infusion Heart rates range from 75-97 beats a minute Normal blood pressure No arrhythmias Dr. Lorne Barragan MD (Electronically Signed) Final Date: 07 October 2021 14:51
== END | disposition home or self-care (01) ==
LOC: RADNMMAIN 07:50
PROVIDERS: ATTEND Internal Medicine Cardiovascular Disease
DX: R07.9 Chest pain, unspecified (principal)
CPT/HCPCS: 93017; 78452; A9500

== ENCOUNTER → 2022-04-07 | Outpatient (CLI) | payer OTHER ==
--- NOTE | 2022-04-07 07:50 | US ---
EXAMINATION TYPE: US kidneys/renal and bladder DATE OF EXAM: 04/07/2022 COMPARISON: 06/08/2020 ultrasound CLINICAL HISTORY: N18.31 CHRONIC KID DISEASE, STAGE 3A. CKD, stage 3 EXAM MEASUREMENTS: Right Kidney: 10.3 x 3.9 x 4.8 cm Left Kidney: 10.4 x 4.2 x 5.2 cm Right Kidney: no evidence of hydronephrosis Left Kidney: no evidence of hydronephrosis Bladder: appears wnl Bilateral Jets seen: yes There is no evidence for hydronephrosis at this point in time. No nephrolithiasis is seen. No ay s are identified. The urinary bladder is anechoic. Bilateral ureteral jets are seen. IMPRESSION: No evidence of obstructive uropathy.
== END | disposition home or self-care (01) ==
LOC: RADUSWWP 07:03
PROVIDERS: ATTEND Internal Medicine Nephrology
DX: N18.31 Chronic kidney disease, stage 3a (principal)
CPT/HCPCS: 76770

== ENCOUNTER → 2023-04-13 | Outpatient (CLI) | payer OTHER ==
--- NOTE | 2023-04-13 17:10 | CT ---
EXAMINATION TYPE: CT soft tissue neck wo con CT DLP: 494 mGycm, Automated exposure control for dose reduction was used. DATE OF EXAM: 04/13/2023 4:23 PM COMPARISON: None. CLINICAL INDICATION:Female, 48 years old with history of R59.0 LOCALIZED ENLARGED LYMPH NODES; PHH, S ore throat and swollen lymph nodes x few years. TECHNIQUE: Standard enhanced CT of the neck. Axial sections with coronal and sagittal reformats were obtained. Contrast used: mL of , (None if empty) Oral contrast used: (None if empty) FINDINGS: Brain: Visualized portions are grossly unremarkable. Atherosclerosis of the carotid siphons. Orbits: Left aphakia. Postsurgical changes to the globes. Sinuses: Grossly unremarkable. Spaces of the neck: Clear and symmetric. There is a calcification within the floor the mouth on the r ight compatible with sialolithiasis measuring up to 11 x 6 mm. Musculoskeletal: No acute osseous pathology. Lymph nodes: Multiple nonenlarged lymph nodes are seen along both anterior chains of the neck. Vascular structures: Visualized major arteries are patent without evidence of aneurysm. Thoracic Inlet/airway: Airway is patent. Right apical calcified granuloma. Soft tissues/Thyroid: Thyroid and remainder of the soft tissues are unremarkable. Other: none. IMPRESSION 1. No evidence for acute process to explain the patient's sore throat. 2. No evidence of lymphadenopathy. Specifically no greater than 1.0 cm short axis lymph nodes. No ev idence for mass. 3. Right sublingual salivary sialolithiasis.
== END | disposition home or self-care (01) ==
LOC: RADCTMAIN 15:51
PROVIDERS: ATTEND Family Medicine
DX: R59.0 Localized enlarged lymph nodes (principal); K11.5 Sialolithiasis
CPT/HCPCS: 70490

== ENCOUNTER → 2023-10-19 | Outpatient (CLI) | payer OTHER | END | disposition home or self-care (01) | LOC: LABWHC1 15:04 | PROVIDERS: ATTEND Family Medicine | DX: I10 Essential (primary) hypertension (principal); E11.65 Type 2 diabetes mellitus with hyperglycemia; M79.642 Pain in left hand; M79.641 Pain in right hand; Z79.4 Long term (current) use of insulin; E78.2 Mixed hyperlipidemia | CPT/HCPCS: 36415; 80053; 80061; 82306; 82550; 82607; 82746; 83036; 84443; 84550; 85025; 86038 ==

== ENCOUNTER → 2023-10-19 | Outpatient (CLI) | payer OTHER ==
--- NOTE | 2023-11-20 14:01 | XR ---
Patient: Adelina Merchant Ordering Physician: Unknown, Unknown ID: [id number] Phone, Pager: Phone: N/A Pager: N/A : 1975 Age/Gender: 48Y, F Primary Location: N/A Procedure: XR hand limited bilate ral Study Date: 10/19/2023 3:52:00 PM EXAMINATION TYPE: XR hand complete bilateral DATE OF EXAM: 10/29/2023 12:45 PM CLINICAL INDICATION: Pain COMPARISON: None TECHNIQUE: XR hand complete bilateral Frontal, lateral and oblique views were obtained. FINDINGS: Normal alignment of the visualized joints. No acute osseous pathology is identified. No e vidence of soft tissue swelling. No significant degeneration IMPRESSION: 1. No acute osseous pathology. 2. No significant osteoarthrosis .
== END | disposition home or self-care (01) ==
LOC: RADXRMAIN 15:29
PROVIDERS: ATTEND Family Medicine
DX: M79.642 Pain in left hand (principal); M79.641 Pain in right hand